=== PATIENT | female | born 1980 | race African-American/Black ===

== ENCOUNTER 2019-03-21 09:18 | Emergency (ER) | payer MEDICAID ==
[~2019-03-21] VITALS: Ht 170.2 cm; Wt 69.0 kg
[2019-03-21] MEDS ORDERED: TETANUS, DIPHTHERIA, PERTUSSIS VAC/PF 0.5ML (>7YR OLD) IM ONE (10:00)
[2019-03-21] MEDS ORDERED: BACITRACIN ZINC OINT UDPKT TOP ONE (10:00)
[2019-03-21] MEDS ORDERED: IBUPROFEN 600MG TABLET PO ONE (10:00)
[2019-03-21 12:31] VITALS: BP 120/80
== END 2019-03-21 12:33 | disposition home or self-care (01) ==
LOC: ER 09:18
DX: S00.81XA Abrasion of other part of head, initial encounter (principal); S80.212A Abrasion, left knee, initial encounter; S60.512A Abrasion of left hand, initial encounter; F17.210 Nicotine dependence, cigarettes, uncomplicated; Y04.0XXA Assault by unarmed brawl or fight, initial encounter; Y93.89 Activity, other specified; Y92.89 Other specified places as the place of occurrence of the external cause
CPT/HCPCS: 70486; 81025; 90715; 99284

== ENCOUNTER 2019-03-29 11:58 | Emergency (ER) | payer MEDICAID ==
[~2019-03-29] VITALS: Ht 170.2 cm; Wt 71.0 kg
[2019-03-29] MEDS: BACITRACIN/POLYMYXIN B SULFATE OINT 15GM TOP ONE (13:15)
[2019-03-29 13:17] VITALS: BP 138/82
== END 2019-03-29 13:18 | disposition home or self-care (01) ==
LOC: ER 11:58
DX: S80.212A Abrasion, left knee, initial encounter (principal); T81.49XA Infection following a procedure, other surgical site, initial encounter; W01.0XXA Fall on same level from slipping, tripping and stumbling without subsequent striking against object, initial encounter; Y93.89 Activity, other specified; Y92.89 Other specified places as the place of occurrence of the external cause; Y99.8 Other external cause status
CPT/HCPCS: 81025; 99283

== ENCOUNTER 2024-08-05 20:59 | Emergency (ER) | payer MEDICAID ==
[~2024-08-05] VITALS: Ht 167.6 cm; Wt 87.0 kg
[2024-08-05 21:04] VITALS: BP 137/88; PULSE 82; RESP 16; TEMP 98; O2SAT 98
== END 2024-08-06 00:45 | disposition left against medical advice (07) ==
LOC: ER 20:59
DX: L02.414 Cutaneous abscess of left upper limb (principal); M79.622 Pain in left upper arm; M79.89 Other specified soft tissue disorders
CPT/HCPCS: 99281